=== PATIENT | male | born 2000 | race Caucasian/White ===

== ENCOUNTER 2022-12-09 11:01 | Emergency (ER) | payer OTHER, SELFPAY ==
[2022-12-09] VITALS (11 sets, daily range): BP systolic 122–134; BP diastolic 68–76; PULSE 53–75; RESP 14–25; TEMP 37.3; O2SAT 97–100; BMI 22.0
--- NOTE | 2022-12-09 11:32 | ECG_ITS ---
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
--- NOTE | 2022-12-09 11:32 | XR_ITS ---
The [address] [address] Patient Name: SUJATHA RODAS MRN: [id number] date: 2000 Sex: M Assigned Patient Location: ER Current Patient Location: ED.MAIN Accession/Order Number: [id number] Exam Date: 12/09/2022 11:57 Report Date: 12/09/2022 12:49 At the request of: KRISTIAN VAZQUEZ Procedure: XR chest 1V EXAMINATION: XR chest 1V HISTORY: shortness of breath COMPARISON: No relevant comparison available. FINDINGS: LUNGS: No significant pulmonary parenchymal abnormalities. VASCULATURE: No increased pulmonary vasculature. PLEURA: No pneumothorax, effusion, or pleural thickening. CARDIAC: No cardiomegaly or cardiac silhouette abnormality. MEDIASTINUM: No visible mass or adenopathy. BONES: No fracture or visible bone lesion. OTHER: Negative. XR/XR chest 1V IMPRESSION: 1. No acute cardiopulmonary process. Electronically authenticated by: RADHA HILL Date: 12/09/2022 12:49
--- NOTE | 2022-12-09 11:33 | ED.GENADUL1 ---
HPI - General Adult General Chief complaint: Chest Pain Stated complaint: SHORTNESS OF BREATH/CHEST PAIN Time Seen by Provider: 12/09/22 11:11 History of Present Illness HPI narrative: 2 days ago the patient developed sensation of shortness of breath that caught me as I was trying to go to sleep and lasted about 5 seconds . he described it as difficulty catching his breath. He had a couple more episodes the next day and then the symptoms became persistent. He now describes a sensation of tightness in the upper airway but denies any difficulty talking or swallowing. No sore throat, ear pain, nasal symptoms, chest pain or cough. No recent injury or illness. He denied any chemical or environmental exposures at work. PMHx notable only for taking ADHD for the last 2.5 months, since his mother passed, and he only takes that sporadically. No recent travel or immobility. He had left femur repair of fracture as a child and has rods in the leg. He denied any new leg pain or swelling. No history of lung disease/asthma/recurrent croup but he vapes daily over the last 3 years Related Data Home Medications Medication Instructions Recorded Confirmed No Known Home Medications 12/09/22 12/09/22 Previous Rx's Medication Instructions Recorded albuterol 90 mcg-budesonide 80 2 inh inhalation TID PRN shortness 12/09/22 mcg/actuation HFA aerosol inhaler of breath #10.7 grams prednisone 20 mg tablet 40 mg PO DAILY 5 days #10 tabs 12/09/22 Allergies Allergy/AdvReac Type Severity Reaction Status Date / Time Penicillins Allergy Severe Hives Verified 12/09/22 11:09 [facility] Social History Smoking status: Light tobacco smoker Exam Narrative Exam Narrative: Nurses notes and vital signs reviewed and patient is not hypoxic. afebrile General: Well-appearing and in no apparent distress. Skin: Warm, dry, no pallor noted. No rash. Head: Normocephalic, atraumatic. Neck: Supple, non-tender. no crepitus or subcutaneous emphysema. No mass or swelling. No cervical lymphadenopathy. Eye: Pupils are equal, round and EOMI. No scleral icterus. Ears, Nose, Mouth, and Throat: TM are clear, no nasal mucosal hypertrophy. Oral mucosa is moist, no posterior oropharynx erythema, uvula is mid-line Cardiovascular: Regular Rate and Rhythm without murmur, gallop or rub. Respiratory: No accessory muscle use or respiratory distress. Lungs are clear to auscultation, no wheezing, rales or rhonchi Chest Wall: no tenderness, crepitus or subcutaneous emphysema Musculoskeletal: normal ROM, no calf or popliteal tenderness, no lower extremity edema/swelling Neurological: A&O x4. No cranial nerve dysfunction observed. No truncal ataxia. Moves all extremities. Sensation intact. Psychiatric: Cooperative and interactive. Normal mood and affect. Constitutional Vital Signs, click to edit/add: Last Vital Signs Temp 99.1 F 12/09/22 11:05 Pulse 55 L 12/09/22 11:42 Resp 20 12/09/22 11:05 BP 134/76 12/09/22 11:05 Pulse Ox 97 12/09/22 11:42 O2 Del Method Room Air 12/09/22 11:05 Course Vital Signs Vital signs: Vital Signs Temperature 99.1 F 12/09/22 11:05 Pulse Rate 62 12/09/22 11:05 Respiratory Rate 20 12/09/22 11:05 Blood Pressure 134/76 12/09/22 11:05 Pulse Oximetry 100 12/09/22 11:05 Oxygen Delivery Method Room Air 12/09/22 11:05 Temperature 99.1 F 12/09/22 11:05 Pulse Rate 55 L 12/09/22 11:42 Respiratory Rate 20 12/09/22 11:05 Blood Pressure 134/76 12/09/22 11:05 Pulse Oximetry 97 12/09/22 11:42 Oxygen Delivery Method Room Air 12/09/22 11:05 Medical Decision Making [facility] Narrative Medical decision making narrative: Patient was placed on playground monitor and EKG obtained. Blood drawn and sent for evaluation. chest x-ray obtained. Blood tests were unremarkable including screening d-dimer. EKG was normal. Chest x-ray unremarkable. The patient received oral steroids and nebulized albuterol treatment while in the emergency department. Patient and family informed of results and he was discharged home with prescriptions for short course of prednisone and an albuterol MDI. The patient was instructed to stop vaping. He can see his PCP for follow up. Lab Data Labs: Lab Results 12/09/22 Range/Units 11:40 WBC 8.3 (4.0-11.0) 10^3/uL RBC 4.52 L (4.70-6.10) 10^6/uL Hgb 13.8 L (14.0-18.0) g/dL Hct 39.6 L (42.0-54.0) % MCV 87.6 (80.0-94.0) fL MCH 30.5 (25.9-34.0) pg MCHC 34.8 (29.9-35.2) g/dL RDW 12.9 (11.0-15.0) % Plt Count 209 (150-450) 10^3/uL MPV 10.2 (9.5-13.5) fL Neut % (Auto) 67.0 (43.0-75.0) % Lymph % (Auto) 23.0 (20.5-60.0) % [place] % (Auto) 8.3 (1.7-12.0) % Eos % (Auto) 1.1 (0.9-7.0) % Baso % (Auto) 0.5 (0.2-2.0) % Neut # (Auto) 5.6 (1.4-6.5) 10^3/uL Lymph # (Auto) 1.9 (1.2-3.8) 10^3/uL [place] # (Auto) 0.7 (0.3-0.8) 10^3/uL Eos # (Auto) 0.1 (0.0-0.7) 10^3/uL Baso # (Auto) 0.0 (0.0-0.1) 10^3/uL Abs Immat Gran (auto) 0.01 (0.00-0.03) 10^3/uL Imm/Tot Granulo (auto) 0.1 (0.0-0.5) % D-Dimer <0.19 (<=0.59) mg/L FEU Sodium 139 (136-145) mmol/L Potassium 3.7 (3.5-5.1) mmol/L Chloride 104 (98-107) mmol/L Carbon Dioxide 27.5 (21.0-32.0) mmol/L Anion Gap 11.2 BUN 10.0 (7.0-18.0) mg/dL Creatinine 0.78 (0.70-1.30) mg/dL Est GFR ( Amer) >60 (>=60) Est GFR (Non-Af Amer) >60 (>=60) BUN/Creatinine Ratio 12.8 Glucose 97 (74-106) mg/dL Calcium 9.0 (8.5-10.1) mg/dL ECG Data Attestation: ?I have reviewed the pertinent ECG results. Interpretation: EKG interpretation: Emergency Department physician interpretation. Normal sinus rhythm at 59bpm. Normal axis, normal intervals and no ST segment elevation or depression. Discharge Plan Discharge Chief Complaint: Chest Pain Clinical Impression: Acute dyspnea Patient Disposition: Home, Self-Care Time of Disposition Decision: 12:25 Prescriptions / Home Meds: New prednisone 20 mg tablet 40 mg PO DAILY 5 Days Qty: 10 0RF albuterol-budesonide 90-80 mcg/actuation HFA aerosol inhaler 2 inh inhalation TID PRN (Reason: shortness of breath) Qty: 10.7 0RF No Action No Known Home Medications Instructions: Dyspnea (ED) Stand Alone Forms: Portal Instructions Referrals: Physician,Non-Staff, MD [Primary Care Provider] - 1 week
[2022-12-09] MEDS: PREDNISONE 20 MG TABLET 40 MG PO (11:38)
[2022-12-09] MEDS: ALBUTEROL SULFATE 2.5 MG/3 ML VIAL NEB IH (11:41)
[2022-12-09 11:48] LABS: Basophils Percent Auto 0.5 % (0.2-2.0); Eosinophils Absolute Auto 0.1 10^3/uL (0.0-0.7); Eosinophils Percent Auto 1.1 % (0.9-7.0); Hematocrit 39.6 % (42.0-54.0); Hemoglobin 13.8 g/dL (14.0-18.0); Immature Granulocytes Abs Auto 0.01 10^3/uL (0.00-0.03); Immature Granulocytes Pct Auto 0.1 % (0.0-0.5); Lymphocytes Absolute Auto 1.9 10^3/uL (1.2-3.8); Mean Corpuscular HGB Conc 34.8 g/dL (29.9-35.2); Mean Corpuscular Hemoglobin 30.5 pg (25.9-34.0); Mean Corpuscular Volume 87.6 fL (80.0-94.0); Mean Platelet Volume 10.2 fL (9.5-13.5); Monocytes Absolute Auto 0.7 10^3/uL (0.3-0.8); Monocytes Percent Auto 8.3 % (1.7-12.0); Neutrophils Absolute Auto 5.6 10^3/uL (1.4-6.5); Platelet Count 209 10^3/uL (150-450); Red Blood Count 4.52 10^6/uL (4.70-6.10); Red Cell Distribution Width 12.9 % (11.0-15.0); White Blood Count 8.3 10^3/uL (4.0-11.0)
[2022-12-09 12:00] LABS: Anion Gap 11.2; BUN Creatinine Ratio 12.8; Carbon Dioxide 27.5 mmol/L (21.0-32.0); Chloride 104 mmol/L (98-107); Estimated GFR (African America >60 (>=60); Estimated GFR (Non-African Ame >60 (>=60); Glucose 97 mg/dL (74-106); Potassium 3.7 mmol/L (3.5-5.1); Sodium 139 mmol/L (136-145)
[2022-12-09 12:08] LABS: D Dimer <0.19 mg/L FEU (<=0.59)
== END 2022-12-09 12:32 | disposition home or self-care (01) ==
PROVIDERS: Emergency Provider Emergency Medicine
DX: R06.00 Dyspnea, unspecified (principal); F17.210 Nicotine dependence, cigarettes, uncomplicated
CPT/HCPCS: 36415; 71045; 80048; 85025; 85378; 93005; 94640; 99285

== ENCOUNTER 2024-03-31 16:50 | Emergency (ER) | payer OTHER, SELFPAY ==
[2024-03-31 16:54] VITALS: BP 134/81; PULSE 74; TEMP 36.6; O2SAT 98; BMI 25.1
--- NOTE | 2024-03-31 16:56 | XR_ITS ---
The [address] [address] Patient Name: SUJATHA RODAS MRN: [id number] date: 2000 Sex: M Assigned Patient Location: ER Current Patient Location: Accession/Order Number: [id number] Exam Date: 03/31/2024 17:26 Report Date: 03/31/2024 18:44 At the request of: GRANT TRAVIS Procedure: XR hand RT min 3V EXAM: XR hand RT min 3V HISTORY: injury COMPARISON: None. TECHNIQUE: 3 views of right hand FINDINGS: There is no acute fracture or dislocation. The soft tissue is unremarkable. XR/XR hand RT min 3V IMPRESSION: No acute process. Electronically authenticated by: COLE VAZQUEZ Date: 03/31/2024 18:44
--- OUTSIDE RECORDS SUMMARY | 2024-03-31 17:04 | XMS_ITS | CCD ---
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 information for diagnosis. XR CHEST (2 VW)on 11-07-2019 EXAMINATION: TWO XRA Y VIEWS OF THE CHEST 11/07/2019 5:53 pm COMPARISON: 10/30/2018 HISTORY: ORDERING SYSTEM PROVIDED HISTORY: chest pain TECHNOLOGIST PROVIDED HISTORY: chest pain Reason for Exam: chest pain mid, pounding upon waking. Acuity: Chronic Type of Exam: Subsequent/Follow-up FINDINGS: Frontal and lateral views of the chest are submitted for review. The cardiac silhouette is normal in size. Lung parenchyma is clear without focal airspace consolidation, sizeable pleural effusion, or pneumothorax. Trachea is midline. Osseous structures and soft tissues are grossly intact. [place] No acute cardiopulmonary pathology. [place] Gianni, Mhpn Incoming Radiant Results From [employer] - 11/07/2019 6:06 PM EDT EXAMINATION: TWO XRAY VIEWS OF THE CHEST 11/07/2019 5:53 pm COMPARISON: 10/30/2018 HISTORY: ORDERING SYSTEM PROVIDED HISTORY: chest pain TECHNOLOGIST PROVIDED HISTORY: chest pain Reason for Exam: chest pain mid, pounding upon waking. Acuity: Chronic Type of Exam: Subsequent/Follow-up FINDINGS: Frontal and lateral views of the chest are submitted for review. The cardiac silhouette is normal in size. Lung parenchyma is clear without focal airspace consolidation, sizeable pleural effusion, or pneumothorax. Trachea is midline. Osseous structures and soft tissues are grossly intact. IMPRESSION: No acute cardiopulmonary pathology. [facility]-2019 Right wrist: No acut e fracture or dislocation. Right hand: No acute fracture or dislocation. [facility] EXAMINATION: 4 XRAY VIEWS OF THE RIGHT WRIST; THREE XRAY VIEWS OF THE RIGHT HAND 05/26/2019 5:07 pm COMPARISON: None. HISTORY: ORDERING SYSTEM PROVIDED HISTORY: pain TECHNOLOGIST PROVIDED HISTORY: pain Reason for Exam: Right wrist pain, pinned bwetween wall and gun cabinet this am at 9 Acuity: Acute Type of Exam: Initial Relevant Medical/Surgical History: pain radial side and thumb 18-year-old male who complains of right wrist and right hand pain; right wrist pain; pain between wall and gun cabinet this morning at 9 a.m. FINDINGS: Right wrist: Joint spaces are well maintained. Osseous alignment is normal. No marginal erosions are identified. No acute fracture or gross dislocation is seen. Scaphoid appears grossly intact. No significant soft tissue swelling is identified. Right hand: Osseous alignment is normal. Joint spaces are well maintained. No marginal erosions are identified. No acute fracture or gross dislocation is seen. No focal soft tissue swelling is evident. [facility] Gianni, Mhpn Incoming Radiant Results From [employer] - 05/26/2019 5:22 PM EDT EXAMINATION: 4 XRAY VIEWS OF THE RIGHT WRIST; THREE XRAY VIEWS OF THE RIGHT HAND 05/26/2019 5:07 pm COMPARISON: None. HISTORY: ORDERING SYSTEM PROVIDED HISTORY: pain TECHNOLOGIST PROVIDED HISTORY: pain Reason for Exam: Right wrist pain, pinned bwetween wall and gun cabinet this am at 9 Acuity: Acute Type of Exam: Initial Relevant Medical/Surgical History: pain radial side and thumb 18-year-old male who complains of right wrist and right hand pain; right wrist pain; pain between wall and gun cabinet this morning at 9 a.m. FINDINGS: Right wrist: Joint spaces are well maintained. Osseous alignment is normal. No marginal erosions are identified. No acute fracture or gross dislocation is seen. Scaphoid appears grossly intact. No significant soft tissue swelling is identified. Right hand: Osseous alignment is normal. Joint spaces are well maintained. No marginal erosions are identified. No acute fracture or gross dislocation is seen. No focal soft tissue swelling is evident. IMPRESSION: Right wrist: No acute fracture or dislocation. Right hand: No acute fracture or dislocation. [place] Basic Metabolic Panelon 10-16 Anion gap [Moles/Vol] 14 mmol/L 9 - 17 mmol/L [place] Bun/Cre Ratio NOT REPORTED [place], [place] Calcium [Mass/Vol] 9.1 mg/dL 8.6 - 10. 4 mg/dL [place] Chloride [Moles/Vol] 101 mmol/L 98 - 107 mmol/L [place] CO2 [Moles/Vol] 25 mmol/L 20 - 31 mmol/L [place] Creatinine [Mass/Vol] 0.8 mg/dL 0.7 - 1.2 mg/dL [place] GFR NOT REPORTED >60 mL/min [place] GFR Non- Pediatric GFR requires additional information. Refer to NKDEP website for calculator. >60 mL/min [place] GFR/1.73 sq M predicted among non-blacks MDRD (S/P/Bld) [Vol rate/Area] [place] Comment on above: Average GFR for <20 years old not available. Chronic Kidney Disease: <60 mL/min/1.73sq m Kidney failure: <15 mL/min/1.73sq m eGFR calculated using average adult body mass. Additional eGFR calculator available at: http://www.[facility].eCozy/multiple_crcl_2012.htm GFR/1.73 sq M predicted among non-blacks MDRD (S/P/Bld) [Vol rate/Area] NOT REPORTED [place] Glucose [Mass/Vol] 93 mg/dL 70 - 99 mg/dL [place] Potassium [Moles/Vol] 3.8 mmol/L 3.7 - 5.3 mmol/L [place] Sodium [Moles/Vol] 140 mmol/L 135 - 144 mmol/L [place] Urea nitrogen [Mass/Vol] 9 mg/dL 6 - 20 mg/dL [place] CBC Auto Differentialon 10-16 Basophils (Bld) [#/Vol] 0.00 10*3/uL [place] Basophils/100 WBC (Bld) 0 % 0 - 2 % [place] Differential Type NOT REPORTED [place] Eosinophils (Bld) [#/Vol] 0.00 10*3/uL [place] Eosinophils/100 WBC (Bld) 0 % Low 1 - 4 % [place] Erythrocyte distribution width (RBC) [Ratio] 13.7 % 12.5 - 15.4 % [place] Hematocrit (Bld) [Volume fraction] 41.3 % 41 - 53 % [place] Hemoglobin (Bld) [Mass/Vol] 14.3 g/dL 13.5 - 17.5 g/dL [place] Interpretation and review of laboratory results Abnormal [place] Lymphocytes (Bld) [#/Vol] 0.36 10*3/uL [place] Lymphocytes/100 WBC (Bld) 4 % Low 25 - 45 % [place] MCH (RBC) [Entitic mass] 29.7 pg 25 - 35 pg [place] MCHC (RBC) [Mass/Vol] 34.7 g/dL 31 - 37 g/dL [place] MCV (RBC) [Entitic vol] 85.5 fL 78 - 102 fL [place] Monocytes (Bld) [#/Vol] 1.27 10*3/uL [place] Monocytes/100 WBC (Bld) 14 % High 2 - 8 % [place] Morphology Rio (Bld) [Interp] Normal [place] Platelet mean volume (Bld) [Entitic vol] 8.3 fL 6 - 12 fL [place] Platelets (Bld) [#/Vol] 161 10*3/uL [place] Platelets (Bld) [#/Vol] NOT REPORTED [place] RBC (Bld) [#/Vol] 4.83 10*6/uL 4.5 - 5.9 m/uL [place] RBC morphology finding Nom (Bld) NOT REPORTED [place] Segmented neutrophils/100 WBC (Bld) 82 % High 34 - 64 % [place] Segs Absolute 7.47 [place] WBC (Bld) [#/Vol] NOT REPORTED per 100 WBC [place] WBC (Bld) [#/Vol] 9.1 10*3/uL [place] WBC Morphology NOT REPORTED [place] Microscopic Urinalysison Amorphous, UA NOT REPORTED None [place], [place] Bacteria, UA FEW Abnormal None [place] Casts UA NOT REPORTED /LPF [place] Crystals UA NOT REPORTED None /HPF [place] Epithelial Cells UA 0 TO 2 /HPF [place] Interpretation and review of laboratory results Abnormal [place] Mucus, UA 2+ Abnormal None [place] Other Observations UA Utilizing a urinalysis as the only screening method to exclude a potential uropathogen can be unreliable in many patient populations. Rapid screening tests are less sensitive than culture and if UTI is a clinical possibility, culture should be considered despite a negative urinalysis. Abnormal NOT REQ. [place] RBC (U) [#/Vol] 0 TO 2 /HPF [place] Renal Epithelial, Urine NOT REPORTED 0 /HPF [place] Trichomonas, UA NOT REPORTED None [place] WBC, UA 2 TO 5 /HPF [place] Yeast, UA NOT REPORTED None [place], [place] - [place] Otheron 10-30-2018 Immature granulocytes (Bld) [#/Vol] NOT REPORTED [place] Urinalysis Reflex to Culture on 10-30-2018 Bilirubin Urine Negative NEGATIVE [facility] [place] Color, UA YELLOW YELLOW [place] Glucose, Ur Negative NEGATIVE [place] Interpretation and review of laboratory results Abnormal [place] Ketones Ql (U) Negative NEGATIVE [place] Leukocyte esterase Test strip Ql (U) Negative NEGATIVE [place] Nitrite, Urine Negative NEGATIVE [place] pH, UA 6.5 [place] Protein (U) [Mass/Vol] TRACE Abnormal NEGATIVE [place] Specific [place], UA 1.020 [place] Turbidity UA CLEAR CLEAR [place] Urinalysis Comments NOT REPORTED [place] Urine Hgb Negative NEGATIVE [place] Urobilinogen, Urine Normal Normal [place] XR CHEST STANDARD (2 VW)on 0 10-30-2018 EXAMINATION: TWO XRA Y VIEWS OF THE CHEST 10/30/2018 2:19 pm COMPARISON: Chest February 02, 2017. HISTORY: ORDERING SYSTEM PROVIDED HISTORY: fever TECHNOLOGIST PROVIDED HISTORY: fever Reason for Exam: cough Acuity: Acute Type of Exam: Initial Additional signs and symptoms: fever Relevant Medical/Surgical History: pt denies FINDINGS: The lungs are without acute focal process. There is no effusion or pneumothorax. The cardiomediastinal silhouette is without acute process. The osseous structures are without acute process. [place] No acute process. [facility] [place] Gianni, Mhpn Incoming Radiant Results From [employer] - 10/30/2018 2:43 PM EDT EXAMINATION: TWO XRAY VIEWS OF THE CHEST 10/30/2018 2:19 pm COMPARISON: Chest February 02, 2017. HISTORY: ORDERING SYSTEM PROVIDED HISTORY: fever TECHNOLOGIST PROVIDED HISTORY: fever Reason for Exam: cough Acuity: Acute Type of Exam: Initial Additional signs and symptoms: fever Relevant Medical/Surgical History: pt denies FINDINGS: The lungs are without acute focal process. There is no effusion or pneumothorax. The cardiomediastinal silhouette is without acute process. The osseous structures are without acute process. IMPRESSION: No acute process. [place] Vital Signs Date Time Vital Sign Value Performing Clinician Rigoberto harman 03-07-2023 12:30-0500 Body height 172.72 cm Kelly Lazaromond Other [facility] Other 03-07-2023 12:30-0500 Body mass index (BMI) [Ratio] 25.09 kg/m2 Kelly Lazaromond Other [facility] Other 03-07-2023 12:30-0500 Body temperature 97.6 [degF] Kelly Duval Other [facility] Other 03-07-2023 12:30-0500 Body weight 74.84 kg Kelly Lazaromond Other [facility] Other 03-07-2023 12:30-0500 Diastolic blood pressure 72 mm[Hg] Kelly Lazaromond Other [facility] Other 03-07-2023 12:30-0500 Respiratory rate 18 /min Kelly Lazaromond Other [facility] Other 03-07-2023 12:30-0500 SaO2% (BldA) [Mass fraction] 99 % Kelly Lazaromond Other [facility] Other 03-07-2023 12:30-0500 Systolic blood pressure 124 mm[Hg] Kelly Lazaromond Other [facility] Other 04-25-2022 17:21-0500 Body height 172.7 cm Harvey Hinojosa MD Work Phone: [employer] 04-25-2022 17:21-0500 Body mass index (BMI) [Ratio] 21.29 kg/m2 Harvey Hinojosa MD Work Phone: [employer] 04-25-2022 17:21-0500 Body temperature 98.1 [degF] Harvey Hinojosa MD Work Phone: [employer] 04-25-2022 17:21-0500 Body weight 63.5 kg Harvey Hinojosa MD Work Phone: [employer] 04-25-2022 17:21-0500 Diastolic blood pressure 72 mm[Hg] Harvey Hinojosa MD Work Phone: [employer] 04-25-2022 17:21-0500 Heart rate 78 /min Harvey Hinojosa MD Work Phone: [employer] 04-25-2022 17:21-0500 Respiratory rate 16 /min Harvey Hinojosa MD Work Phone: [employer] 04-25-2022 17:21-0500 SaO2% (BldA) [Mass fraction] 98 % Harvey Hinojosa MD Work Phone: [employer] 04-25-2022 17:21-0500 Systolic blood pressure 114 mm[Hg] Harvey Hinojosa MD Work Phone: [employer] 02-28-2021 11:57-0500 Body height 172.7 cm Jolene Rivera DO Work Phone: [employer] 02-28-2021 11:57-0500 Body mass index (BMI) [Ratio] 21.12 kg/m2 Jolene Rivera DO Work Phone: [employer] 02-28-2021 11:57-0500 Body temperature 97.7 [degF] Jolene Rivera DO Work Phone: [employer] 02-28-2021 11:57-0500 Body weight 63 kg Jolene Rivera DO Work Phone: [employer] 02-28-2021 11:57-0500 Diastolic blood pressure 82 mm[Hg] Jolene Rivera DO Work Phone: [employer] 02-28-2021 11:57-0500 Heart rate 84 /min Jolene Rivera DO Work Phone: [facility] 02-28-2021 11:57-0500 Respiratory rate 16 /min Jolene Rivera DO Work Phone: [facility] 02-28-2021 11:57-0500 SaO2% (BldA) [Mass fraction] 97 % Jolene Rivera DO Work Phone: [facility] 02-28-2021 11:57-0500 Systolic blood pressure 123 mm[Hg] Jolene Rivera DO Work Phone: [facility] 11-07-2019 19:00-0400 BP Diastolic 61 mm[Hg] [facility] [employer] [facility] [place] 11-07-2019 19:00-0400 BP Systolic 106 mm[Hg] [facility] [employer] [facility] [place] 11-07-2019 19:00-0400 Pulse (Heart Rate) 50 /min [facility] [employer] [facility] 11-07-2019 19:00-0400 Pulse Oximetry 94 % [facility] [employer] [facility] [place] 11-07-2019 19:00-0400 Respiratory Rate 18 /min [facility] [place] 11-07-2019 17:03-0400 BMI (Body Mass Index) 20.07 kg/m2 [facility] [employer] [facility] 11-07-2019 17:03-0400 Body Temperature 99 [degF] [facility] 11-07-2019 17:03-0400 Body weight 59.88 kg [facility] [employer] [facility] [place] 11-07-2019 17:03-0400 Height 172.7 cm [facility] [employer] [facility] [place] 10-08-2019 17:55-0400 Pulse Oximetry 99 % [facility], [place] 10-08-2019 17:55-0400 Respiratory Rate 11 /min [facility] 10-08-2019 17:54-0400 BMI (Body Mass Index) 19.2 kg/m2 [facility], [place] 10-08-2019 17:54-0400 Body Temperature 98.1 [degF] [facility] 10-08-2019 17:54-0400 Body weight 58.97 kg [facility] 10-08-2019 17:54-0400 BP Diastolic 75 mm[Hg] [facility] 10-08-2019 17:54-0400 BP Systolic 137 mm[Hg] [facility] 10-08-2019 17:54-0400 Height 175.3 cm [facility] 10-08-2019 17:54-0400 Pulse (Heart Rate) 70 /min [facility], [place] 05-26-2019 16:32-0400 BMI (Body Mass Index) 20.53 kg/m2 [facility] 05-26-2019 16:32-0400 Body Temperature 98.2 [degF] [facility] 05-26-2019 16:32-0400 Body weight 61.24 kg [facility] , [place] 05-26-2019 16:32-0400 BP Diastolic 70 mm[Hg] [facility] , [place] 05-26-2019 16:32-0400 BP Systolic 124 mm[Hg] [facility] , [place] 05-26-2019 16:32-0400 Height 172.7 cm [facility] , [place] 05-26-2019 16:32-0400 Pulse (Heart Rate) 62 /min [facility] 05-26-2019 16:32-0400 Pulse Oximetry 98 % [facility] , [place] 05-26-2019 16:32-0400 Respiratory Rate 12 /min [facility] 10-30-2018 13:31-0400 BMI (Body Mass Index) 19.77 kg/m2 [facility] 10-30-2018 13:31-0400 Body Temperature 99.5 [degF] Abeba Maciel [place] 10-30-2018 13:31-0400 Body weight 58.97 kg Abeba [place] 10-30-2018 13:31-0400 BP Diastolic 67 mm[Hg] [place] 10-30-2018 13:31-0400 BP Systolic 112 mm[Hg] [place] 10-30-2018 13:31-0400 Height 172.7 cm [place] 10-30-2018 13:31-0400 Pulse (Heart Rate) 76 /min [place] 10-30-2018 13:31-0400 Pulse Oximetry 95 % [place] 10-30-2018 13:31-0400 Respiratory Rate 14 /min [place] Encounters Encounter Date Encounter Type Care Provider Facility Start: 03-07-2023 End: 03-07-2023 ambulatory Kelly Duval Other [facility] Other Start: 03-07-2023 Office outpatient ne w 20 minutes Kelly Duval [facility] [place] Start: 04-25-2022 End: 04-25-2022 Emergency department patient visit ROSANGELA Luis Carlos [facility] Start: 04-25-2022 End: 04-25-2022 Emergency department patient visit Harvey Hinojosa MD Work Phone: [facility] Comment on above: Sprain of right wris t, initial encounter (Primary Dx) Start: 02-28-2021 End: 02-28-2021 Emergency department patient visit Jolene Rivera DO Work Phone: [facility] Comment on above: Gastroenteritis (Regla catracho Dx) Start: 11-07-2019 End: 11-07-2019 Emergency department patient visit Abeba Maciel Work Phone: [facility] Comment on above: Chest pain, unspecif ied type (Primary Dx); Streptococcal sore throat Start: 10-08-2019 End: 10-08-2019 Emergency department patient visit Fuentes Gilmore [facility] Comment on above: Foot laceration, lef t, initial encounter (Primary Dx) Start: 05-26-2019 End: 05-26-2019 Emergency department patient visit Abeba Maciel Work Phone: [facility] Comment on above: Contusion of right w rist, initial encounter (Primary Dx) Start: 10-30-2018 End: 10-30-2018 Emergency department patient visit Abeba Maciel Work Phone: [facility] Comment on above: Viral syndrome (Prim ivet Dx) Start: 02-18-2018 End: 02-18-2018 Patient encounter procedure WISAM WATERS Facility: Procedures Date Procedure Procedure Detail Performing Clinician Start: 04-25-2022 Radex wrist complete minimum 3 views Frank Alejandre [employer] Work Phone: Start: 02-28-2021 Urnls dip stick/tabl et rgnt auto w/o microscopy Jolene Rivera Work Phone: Start: 02-28-2021 Ct abdomen & pelvis w/contrast material Jolene Rivera Work Phone: Start: 02-28-2021 Assay of lipase Jolene Rivera Work Phone: Start: 11-07-2019 Radiologic exam ches t 2 views Abeba Maciel Work Phone: Start: 11-07-2019 Assay of troponin quantitative Abeba Maciel Work Phone: Start: 11-07-2019 Blood count complete auto&auto difrntl wbc Abeba Maciel Work Phone: Start: 11-07-2019 Comprehensive metabo lic panel Abeba Maciel Work Phone: Start: 11-07-2019 Fibrin dgradj produc ts d-dimer quantitative Abeba Maciel Work Phone: Start: 05-26-2019 Radex hand minimum 3 views Linda Espinoza Work Phone: Start: 05-26-2019 Radex wrist complete minimum 3 views Linda Espinoza Work Phone: Start: 10-30-2018 Radiologic exam ches t 2 views Abeba Maciel Work Phone: Start: 10-30-2018 Basic metabolic pane l calcium total Abeba Maciel Work Phone: Start: 10-30-2018 Blood count complete auto&auto difrntl wbc Abeba Maciel Work Phone: Start: 10-30-2018 Urinalysis microscopic only Abeba Maciel Work Phone: Start: 10-30-2018 Urnls dip stick/tabl et rgnt auto w/o microscopy Abeba Maciel Work Phone: Plan of Treatment Date Care Activity Detail Author Start: 09-10-2025 DTaP/Tdap/Td vaccine (7 - Td or Tdap) DTaP/Tdap/Td vaccine (7 - Td or Tdap) [facility] Start: 09-10-2025 DTaP/Tdap/Td vaccine (7 - Td) DTaP/Tdap/Td vaccine (7 - Td) [place] Start: 09-22-2022 Depression Screen Depression Screen [facility] Start: 01-07-2022 Depression Screen Depression Screen [facility] Start: 09-15-2021 Influenza vaccination Flu vaccine (# 1) [facility] Start: 08-14-2021 Influenza vaccination Flu vaccine (# 1) [facility] Comment on above: Postponed from 10/16 (Patient Refused) Start: 10-17-2019 Influenza vaccination [place] Start: 10-16-2018 Influenza vaccination Flu vaccine (# 1) [place] Start: 2016 Meningococcal (ACWY) Vaccine (1 - 2-dose series) Meningococcal (ACWY) Vaccine (1 - 2-dose series) [place] Start: 03-13-2016 Hepatitis A vaccine (2 of 2 - 2-dose series) Hepatitis A vaccine (2 of 2 - 2-dose series) [place] Start: 03-13-2016 HPV vaccine (2 - Mal e 2-dose series) HPV vaccine (2 - Male 2-dose series) [place] Start: 10-14-2015 HIV screen HIV screen [place] Start: 10-14-2015 HIV screening [facility] Start: 10-14-2015 HPV vaccine (1 - Mal e 3-dose series) HPV vaccine (1 - Male 3-dose series) [place] Start: 2013 Varicella Vaccine (1 of 2 - 13+ 2-dose series) Varicella Vaccine (1 of 2 - 13+ 2-dose series) [place] Start: 10-14-2011 DTaP/Tdap/Td vaccine (6 - Tdap) DTaP/Tdap/Td vaccine (6 - Tdap) [place] Start: 2005 COVID-19 Vaccine (1) COVID-19 Vaccin e (1) [facility] Start: 04-14-2001 COVID-19 Vaccine (#1) COVID-19 Vacci ne (#1) [facility] Start: 2000 Hepatitis B Vaccine (1 of 3 - 3-dose primary series) Hepatitis B Vaccine (1 of 3 - 3-dose primary series) [place] End: 10-30-2018 Culture Blood #1 Culture Blood #1 Microbiology STAT One Time for 1 Occurrences starting 10/30/2018 until 10/30/2018 [place] Comment on above: One Time for 1 Occur rences starting 10/30/2018 until 10/30/2018 Culture Blood #1 [place] Immunizations Immunization Date Immunization Notes Care Provider Marie to 03-03-2017 hepatitis A vaccine, pediatric/adolescent dosage, 2 dose schedule Jolene Rivera DO Work Phone: [facility] Work Phone: 03-03-2017 Human Papillomavirus 9-valent vaccine Jolene Rivera DO Work Phone: [facility] Work Phone: 03-03-2017 meningococcal oligosaccharide (groups A, C, Y and W-135) diphtheria toxoid conjugate vaccine (MCV4O) Jolene Rivera DO Work Phone: [employer] Work Phone: 09-11-2015 hepatitis A vaccine, pediatric/adolescent dosage, 2 dose schedule Jolene Rivera DO Work Phone: [employer] Work Phone: 09-11-2015 Human Papillomavirus 9-valent vaccine Jolene Rivera DO Work Phone: [facility] Phone: 09-11-2015 meningococcal oligosaccharide (groups A, C, Y and W-135) diphtheria toxoid conjugate vaccine (MCV4O) Jolene Rivera DO Work Phone: [facility] Phone: 09-11-2015 Td, unspecified formulation Jolene Rivera DO Work Phone: [employer] 09-11-2015 tetanus toxoid, redu ortiz diphtheria toxoid, and acellular pertussis vaccine, adsorbed Jolene Rivera DO Work Phone: [facility] Phone: 09-11-2015 varicella virus vaccine Cedric Rivera DO Work Phone: [facility] Phone: 10-09-2005 diphtheria, tetanus toxoids and acellular pertussis vaccine, unspecified formulation Jolene Rivera DO Work Phone: [facility] Phone: 10-09-2005 measles, mumps and rubella virus vaccine Jolene Rivera DO Work Phone: [facility] Phone: 10-09-2005 poliovirus vaccine, inactivated Jolene Rivera DO Work Phone: [facility] Phone: 02-23-2002 diphtheria, tetanus toxoids and acellular pertussis vaccine, 5 pertussis antigens Jolene Rivera DO Work Phone: [employer] Work Phone: 02-23-2002 haemophilus influenz ae type b vaccine, PRP-T conjugate Jolene Rivera DO Work Phone: [employer] Work Phone: 02-23-2002 measles, mumps and rubella virus vaccine Jolene Rivera DO Work Phone: [employer] Work Phone: 10-18-2001 pneumococcal conjuga te vaccine, 7 valent Jolene Rivera DO Work Phone: [employer] Work Phone: 10-18-2001 poliovirus vaccine, unspecified formulation Jolene Rivera DO Work Phone: [facility] Phone: 10-18-2001 varicella virus vaccine Cedric Rivera DO Work Phone: [employer] Work Phone: 04-14-2001 diphtheria, tetanus toxoids and acellular pertussis vaccine, unspecified formulation Jolene Rivera DO Work Phone: [facility] Phone: 04-14-2001 haemophilus influenz ae type b vaccine, conjugate unspecified formulation Jolene Rivera DO Work Phone: [employer] Work Phone: 04-14-2001 hepatitis B vaccine, pediatric or pediatric/adolescent dosage Jolene Rivera DO Work Phone: [facility] Phone: 04-14-2001 pneumococcal conjuga te vaccine, 7 valent Jolene Rivera DO Work Phone: [employer] Work Phone: 02-18-2001 diphtheria, tetanus toxoids and acellular pertussis vaccine, unspecified formulation Jolene Rivera DO Work Phone: [employer] Work Phone: 02-18-2001 haemophilus influenz ae type b vaccine, conjugate unspecified formulation Jolene Rivera DO Work Phone: [employer] Work Phone: 02-18-2001 pneumococcal conjuga te vaccine, 7 valent Jolene Rivera DO Work Phone: [employer] Work Phone: 02-18-2001 poliovirus vaccine, unspecified formulation Jolene Rivera DO Work Phone: [employer] Work Phone: 2000 diphtheria, tetanus toxoids and acellular pertussis vaccine, unspecified formulation Jolene Rivera DO Work Phone: [employer] Work Phone: 2000 haemophilus influenz ae type b vaccine, conjugate unspecified formulation Jolene Rivera DO Work Phone: [employer] Work Phone: 2000 pneumococcal conjuga te vaccine, 7 valent Jolene Rivera DO Work Phone: [employer] Work Phone: 2000 poliovirus vaccine, unspecified formulation Jolene Rivera DO Work Phone: [employer] Work Phone: 2000 hepatitis B vaccine, pediatric or pediatric/adolescent dosage Jolene Rivera DO Work Phone: [employer] Work Phone: 2000 hepatitis B vaccine, pediatric or pediatric/adolescent dosage Jolene Rivera DO Work Phone: [employer] Work Phone: Payers Date Payer Category Payer Unknown [employer] [address] xxxxxxxxxxxx 2015-Present [phone] [address] [place] [address] xxxxxxxxxxxx [id number] 2000 Unknown [id number] 1971 Unknown [id number] 1959 Unknown [id number] Unknown Social History Date Type Detail Facility Start: 10-30-2018 End: 09-22-2021 Tobacco smoking status NHIS Never smoker [place], [place] Start: 10-30-2018 Alcohol intake No [place], [place] Start: 2000 Sex Assigned At Not on file [place] Start: 05-26-2019 End: 04-25-2022 Alcohol intake Current non-drinker of alcohol (finding) [place] Exposure to SARS-CoV -2 (event) Unable to assess [place] Start: 10-08-2019 End: 09-22-2021 Tobacco use and exposure [facility] [place] Start: 04-15-2022 End: 04-25-2022 Exposure to SARS-CoV-2 (event) Not sure [place] Start: 02-28-2021 End: 04-25-2022 Alcohol intake [facility] Phone: Start: 10-04-2020 History SDOH Financial 5 [facility] Phone: Start: 10-04-2020 History SDOH Food Worry 1 [facility] Phone: Exposure to SARS-CoV -2 (event) Yes [facility] Phone: Evaluation note 03-07-2023 Note Date & Type Note Facility 03-07-2023 Evaluation note Encounter Date Diagnosis Assessment Notes Feb, Contact with and (suspected) exposure to other viral communicable diseases (ICD-10 - Z20.828) Feb, Bilateral otitis media, unspecified otitis media type (ICD-10 - H66.93) Drink plenty fluids, get plenty of rest. Take the cefdinir as prescribed until gone. Take Tylenol or Motrin as needed for aches pains or fevers. Follow-up with your family physician if no improvement in 2 to 3 days Feb, Sore throat (ICD-10 - J02.9) [facility] Discharge instructions 02-28-2021 InstructionsAttachments Note Date & Type Note Facility 02-28-2021 Hospital Discharg e instructions MiguelJolene, DO - 02/28/2021 PLEASE RETURN TO THE EMERGENCY DEPARTMENT IMMEDIATELY if your symptoms worsen in anyway or in 8-12 hours if not improved for re-evaluation. You should immediately return to the ER for symptoms such as increasing pain, bloody stool, fever, a feeling of passing out, light headed, dizziness, chest pain, shortness of breath, persistent nausea and/or vomiting, numbness or weakness to the arms or legs, coolness or color change of the arms or legs. Take your medication as indicated and prescribed. If you are given an antibiotic then, make sure you get the prescription filled and take the antibiotics until finished. Please understand that at this time there is no evidence for a more serious underlying process, but that early in the process of an illness or injury, an emergency department workup can be falsely reassuring. You should contact your family doctor within the next 24 hours for a follow up appointment THANK YOU!!! From [facility] and [facility] On behalf of the Emergency Department staff at [facility], I would like to thank you for giving us the opportunity to address your health care needs and concerns. We hope that during your visit, our service was delivered in a professional and caring manner. Please keep [facility] in mind as we walk with you down the path to your own personal wellness. Please expect an automated text message or email from us so we can ask a few questions about your health and progress. Based on your answers, a clinician may call you back to offer help and instructions. Please understand that early in the process of an illness or injury, an emergency department workup can be falsely reassuring. If you notice any worsening, changing or persistent symptoms please call your family doctor or return to the ER immediately. Tell us how we did during your visit at [email or web address] and let us know about your experience The following attachments cannot be sent through Care Everywhere.Gastroenteritis (Barbadian)documented in this encounter [facility] Phone: Evaluation note Note Date & Type Note Facility Evaluation note Diagnosis Gastroenteritis- Primary Other and unspecified noninfectious gastroenteritis and colitis documented in this encounter [facility] Phone: Evaluation note Note Date & Type Note Facility Evaluation note Diagnosis Sprain of right wrist, initial encounter- Primary documented in this encounter [facility] Phone: History general Narrative - Reported Note Date & Type Note Facility History general Narrative - Reported Type Surgical History femur fracture [facility] Discharge instructions Attachments Note Date & Type Note Facility Hospital Discharge instructions The following attachments cannot be sent through Care Everywhere.RICE: General Info (Barbadian)Wrist Sprain (Barbadian)Hand Sprain (Barbadian)documented in this encounter [facility] Phone: Summary Purpose Family History No Family History Records FoundNo Family History Records Found Advance Directives Documents on File Type Date Recorded Patient Senior Project Manager Expl anation Advance Directives and Living Will Power of Hot Wire Glass Tube Cutter Documents on File Type Date Recorded Patient Senior Project Manager Expl anation ACP-Advance Directive ACP-Power of Hot Wire Glass Tube Cutter Discharge Instructions * Instructions* Abeba Maciel MD - 10/30/2018 Drink plenty fluids and get extra rest. May use ibuprofen. Welaka as needed. Return for worsening fever, pain, rash, mental status change, or if worse in any way. * Attachments The following attachments cannot be sent through Care Everywhere. * Viral Infections: Teen (Barbadian) documented in this encounter* Instructions* Linda Espinoza PA-C - 05/26/2019 Please read and follow all instructions. Take [id number] Tylenol as directed for pain. Apply ice to the right wrist and right hand for 20 to 30 minutes 3-4 times daily over the next 2 to3 days. Follow-up evaluation with primary care doctor in the next 5 to 7 days via telemedicine. Seek medical attention for worsening pain, numbness or coolness in the right upper extremity, or any other concerning symptomatology. * Attachments The following attachments cannot be sent through Care Everywhere. * Contusion: Hand (Barbadian) documented in this encounter* Instructions* Linda Espinoza PA-C - 10/08/2019 Please read and follow all instructions. Keep the laceration site clean, dry, and covered; you may shower as normal, but do not submerge your left foot in water until sutures are removed. Change the dressing over the laceration site at least once daily. Apply [id number] Neosporin, Polysporin, or triple antibiotic cream to the affected area twicedaily. Check the laceration site daily for surrounding redness or drainage. Suture removal with your primary care physician in 8-10 days. Seek medical attention for concerns for infection, fever above 101 F or any other concerning symptomatology. * Attachments The following attachments cannot be sent through Care Everywhere. * Lacerations: Stitches (Barbadian) documented in this encounter* Instructions* Abeba Maciel MD - 11/07/2019 May apply ice or heat. Tylenol or Motrin as directed. Continue antibiotics as directed. Return for worsening pain, fever, difficulty breathing, or if worse in any way. PLEASE RETURN TO THE EMERGENCY DEPARTMENT IMMEDIATELY if your symptoms worsen in anyway or in 8-12 hours if not improved for re-evaluation. You should immediately return to the ER for symptoms such as increasing pain, shortness of breath, fever, a feeling of passing out, light headed, dizziness, abdominal pain, numbness or weakness to the arms or legs, coolness or color change of the arms or legs. Take your medication as indicated and prescribed. If you are given an antibiotic then, make sure you get the prescription filled and take the antibiotics until finished. Please understand that at this time there is no evidence for a more serious underlying process, butthat early in the process of an illness or injury, an emergency department workup can be falsely reassuring. You should contact your family doctor within the next 24 hours for a follow up appointment THANK YOU!!! From [facility] and [facility] On behalf of the Emergency Department staff at [facility], I would like to thank you for giving us the opportunity to address your health care needs and concerns. We hope that during your visit, our service was delivered in a professional and caring manner. Please keep [facility] in mind as we walk with you down the path to your own personal wellness. Please expect an automated text message or email from us so we can ask a few questions about your health and progress. Based on your answers, a clinician may call you back to offer help and instructions. Please understand that early in the process of an illness or injury, an emergency department workupcan be falsely reassuring. If you notice any worsening, changing or persistent symptoms please callyour family doctor or return to the ER immediately. Tell us how we did during your visit at [email or web address] and let us know about your experience * Attachments The following attachments cannot be sent through Care Everywhere. * Strep Throat (Barbadian) * Chest Pain (Barbadian) documented in this encounter Assessments Diagnosis Viral syndrome- Primary Unspecified viral infection, in conditions classified elsewhere and of unspecified site Diagnosis Contusion of right wrist, initial encounter Diagnosis Foot laceration, left, initial encounter Diagnosis Chest pain, unspecified type Streptococcal sore throat Additional Source Comments (unrecognized sect ion and content) No Status Records FoundNo Status Records Found INFORMATION SOURCE (unrecogn ized section and content) DATE CREATED AUTHOR 02/22/2018 [facility] DATE CREATED AUTHOR AUTHOR'S ORGANIZ ATION 12/15/2022 [facility] Reason for Visit (unrecogniz ed section and content) HEADACHE, SORE THROAT, PLUGG ED EARS Reason Comments Headache started around 1000 Reason Comments Wrist Pain right Reason Comments Laceration left foot Reason Comments Chest Pain Shortness of Breath Headache Dx with strept yeste rday. Cefdiner and Motrin 800mg 2 hours ago. Reason Comments Emesis Reason Comments Wrist Injury Right wrist Wrist Pain Ordered Prescriptions (unrec ognized section and content) Prescription Sig Dispensed Refills Start Date End Da te ondansetron (ZOFRAN-ODT) 4 MG disintegrating tablet Take 1 tablet by mouth 3 times daily as needed for Nausea or Vomiting 21 tablet 0 02/28/2021 Scheduled Active and Recently Administ ered Medications (unrecognized section and content) Medication Order 02/26/2021 02/27/2021 02/28/2021 0.9 % sodium chloride bolus (COMPLETED) 80 mL (1.27 mL/kg), IntraVENous, at 160 mL/hr, Administer over 0.5 Hours, ONCE, On Wed02/28/21 at 1230, For 1 dose 1249 (New Bag - Prov ider: Reina Poignon)1300 (Stopped - Provider: Rosa Edwards, XAVIER) 0.9 % sodium chloride bolus (COMPLETED) 1,000 mL (15.9 mL/kg), IntraVENous, at 1,000 mL/hr, Administer over 1 Hours, ONCE, On Wed02/28/21 at 1215, For 1 dose 1222 (New Bag - Prov ider: Zandra Poe RN)1430 (Stopped - Provider: Rosa Edwards RN) ondansetron (ZOFRAN) injection 4 mg (COMPLETED) 4 mg, IntraVENous, ONCE, On Wed02/28/21 at 1215, For 1 dose 1223 (Given - Provid er: Zandra Poe RN) PRN Medication Order 02/26/2021 02/27/2021 02/28/2021 iopamidol (ISOVUE-370) 76 % injection 75 mL (COMPLETED) 75 mL, IntraVENous, IMG ONCE PRN, Other, Starting on Wed02/28/21 at 1218, For 1 dose 1249 (Given - Provid er: Bertram Poignon) sodium chloride flush 0.9 % injection 10 mL 10 mL, IntraVENous, PRN, Line Care, Starting on Wed02/28/21 at 1218 1250 (Given - Provid er: Bertram Poignon) Care Teams (unrecognized sec tion and content) Crotch Piece Baster Relationship Specialty Start Date End Date Rosangela Nunes BLUE SPLIT TRIMMER - [employer] VACU[employer] TESTER [address] [facility] [place] [address] PCP - General Nurse Practitioner 10/04/20 Crotch Piece Baster Relationship Specialty Start Date End Date Rosangela Nunes BLUE SPLIT TRIMMER - C[employer] VACUUM TESTER [address]ía [facility] [place] [place] [address] PCP - General Nurse Practitioner 10/04/20 FOR RECORDS PERTAINING TO PATIENTS WHO ARE OR HAVE BEEN ENROLLED IN A CHEMICAL DEPENDENCY/SUBSTANCEABUSE PROGRAM, SOME INFORMATION MAY BE OMITTED. This clinical summary was aggregated from multiple sources. Caution should be exercised in using it in the provision of clinical care. This summary normalizes information from multiple sources, and as a consequence, information in this document may materially change the coding, format and clinical context of patient data. In addition, data may be omitted in some cases. CLINICAL DECISIONS SHOULD BE BASED ON THE PRIMARY CLINICAL RECORDS. [facility] [employer] [facility]. provides no warranty or guarantee of the accuracy or completeness of information in this document.
--- NOTE | 2024-03-31 17:49 | ED_ITS ---
Documented by User: Kiana Staples 03/31/24 17:53 HPI HPI - General Adult General Chief complaint: Extremity Injury, Upper Stated complaint: upper extremity injury Time Seen by Provider: 03/31/24 16:54 Mode of arrival: walk-in History of Present Illness HPI narrative: 23-year-old male presents here with a chief complaint of an injury to the right little finger that occurred yesterday while at work. Patient states his hand got slammed with a broom at work. Subungual hematoma noted. Patient denies any other injuries. Injury did occur yesterday. He has been using ibuprofen at home. Related Data Previous Rx's ?Medication ?Instructions ?Recorded ibuprofen 800 mg tablet 800 mg PO Q8H PRN pain #30 tabs 03/31/24 Allergies Allergy/AdvReac Type Severity Reaction Status Date / Time Penicillins Allergy Severe Hives Verified 12/09/22 11:09 Opioid HPI Opioid Management Most Recent Opioid Data: No Data to Display Review of Systems ROS Narrative All Systems are negative except as noted/marked.All systems reviewed and otherwise negative PFSH PFSH Social History Smoking status: Light tobacco smoker Little interest or pleasure in doing things: not at all Feeling down, depressed, or hopeless: not at all Exam Narrative Exam Narrative: Nurses note and vital signs reviewed and patient is not hypoxic. General: The patient appears well and in no apparent distress. Patient is resting comfortably on cart. Skin: Warm, dry, no pallor noted. There is no rash noted. Head: Normocephalic, atraumatic Eye: Normal conjunctiva, no drainage, EOMI. PERRL Ears, Nose, Mouth, and Throat: oral mucosa is moist. Nares patent. Mouth without vesicles. Ear canals patent. Tm's without Erythema Musculoskeletal: Vanesa noted to the right little finger, full range of motion of the right hand, some tenderness with flexion extension of little finger. The patient has no evidence of calf tenderness, no pitting edema, symmetrical pulses noted bilaterally Neurological: A&O x4, normal speech Psychiatric: Cooperative Constitutional Vital Signs, click to edit/add: Last Vital Signs Temp 97.9 F 03/31/24 16:54 Pulse 74 03/31/24 16:54 Resp 18 03/31/24 16:54 BP 134/81 03/31/24 16:54 Pulse Ox 98 03/31/24 16:54 Course Vital Signs Vital signs: Vital Signs Temperature 97.9 F 03/31/24 16:54 Pulse Rate 74 03/31/24 16:54 Respiratory Rate 18 03/31/24 16:54 Blood Pressure 134/81 03/31/24 16:54 Pulse Oximetry 98 03/31/24 16:54 Temperature 97.9 F 03/31/24 16:54 Pulse Rate 74 03/31/24 16:54 Respiratory Rate 18 03/31/24 16:54 Blood Pressure 134/81 03/31/24 16:54 Pulse Oximetry 98 03/31/24 16:54 Medical Decision Making MDM Narrative Medical decision making narrative: 23-year-old male presents here with a chief complaint of an injury to the right little finger that occurred yesterday while at work. Patient states his hand got slammed with a broom at work. Subungual hematoma noted. Patient denies any other injuries. Injury did occur yesterday. He has been using ibuprofen at home. No acute fracture or deformity. Patient had subungual hematoma that was trephinated by myself. Moderate amount of blood was expressed from the little finger. Bacitracin and finger splint applied by nursing staff. Extremity neurovascular intact before and after finger splint. Patient will follow-up with occupational health. He was given a list of occupational medicine department to follow-up. I explained the importance of following up with the occupational medicine. He agrees with plan of care discharged home prescription of ibuprofen. Ice and elevation Differential Diagnosis Differential Diagnosis: finger fracrue, subungual hematoma, sprain Medical Records Medical records reviewed: Yes I reviewed the patient's medical records Imaging Data finger: Radiologist's impression: ITS Impressions Hand X-Ray 03/31/24 16:56 IMPRESSION: No acute process. Electronically authenticated by: COLE VAZQUEZ Date: 03/31/2024 18:44 Discharge Plan Discharge Chief Complaint: Extremity Injury, Upper Clinical Impression: Finger sprain, Subungual hematoma Patient Disposition: Home, Self-Care Time of Disposition Decision: 17:47 Condition: Good Prescriptions / Home Meds: New ibuprofen 800 mg tablet 800 mg PO Q8H PRN (Reason: pain) Qty: 30 0RF Print Language: Algerian Instructions: Subungual Hematoma (ED), Finger Sprain (ED) Additional Instructions: occupational health per employer discretion, information sheet provided in er Referrals: Physician,Non-Staff, [Primary Care Provider] - 1 week Discharge Date/Time: 03/31/24 18:03 Documented by User: Bonifacio Salgado MD 03/31/24 19:50 HPI HPI - General Adult General Chief complaint: Extremity Injury, Upper Stated complaint: upper extremity injury Time Seen by Provider: 03/31/24 16:54 Related Data Previous Rx's ?Medication ?Instructions ?Recorded ibuprofen 800 mg tablet 800 mg PO Q8H PRN pain #30 tabs 03/31/24 Allergies Allergy/AdvReac Type Severity Reaction Status Date / Time Penicillins Allergy Severe Hives Verified 12/09/22 11:09 Opioid HPI Opioid Management Most Recent Opioid Data: No Data to Display PFSH PFSH Social History Smoking status: Light tobacco smoker Little interest or pleasure in doing things: not at all Feeling down, depressed, or hopeless: not at all Exam Constitutional Vital Signs, click to edit/add: Last Vital Signs Temp 97.9 F 03/31/24 16:54 Pulse 74 03/31/24 16:54 Resp 18 03/31/24 16:54 BP 134/81 03/31/24 16:54 Pulse Ox 98 03/31/24 16:54 Course Vital Signs Vital signs: Vital Signs Temperature 97.9 F 03/31/24 16:54 Pulse Rate 74 03/31/24 16:54 Respiratory Rate 18 03/31/24 16:54 Blood Pressure 134/81 03/31/24 16:54 Pulse Oximetry 98 03/31/24 16:54 Temperature 97.9 F 03/31/24 16:54 Pulse Rate 74 03/31/24 16:54 Respiratory Rate 18 03/31/24 16:54 Blood Pressure 134/81 03/31/24 16:54 Pulse Oximetry 98 03/31/24 16:54 Medical Decision Making MDM Narrative Medical decision making narrative: 23-year-old male presents here with a chief complaint of an injury to the right little finger that occurred yesterday while at work. Patient states his hand got slammed with a broom at work. Subungual hematoma noted. Patient denies any other injuries. Injury did occur yesterday. He has been using ibuprofen at home. No acute fracture or deformity. Patient had subungual hematoma that was trephinated by myself. Moderate amount of blood was expressed from the little finger. Bacitracin and finger splint applied by nursing staff. Extremity neurovascular intact before and after finger splint. Patient will follow-up with occupational health. He was given a list of occupational medicine department to follow-up. I explained the importance of following up with the occupational medicine. He agrees with plan of care discharged home prescription of ibuprofen. Ice and elevation I, Dr Salgado, have reviewed the above progress note and course of action in the ER; agree with the above. I have gone over history and physical, and discussed disposition and treatment plan with the PA. Imaging Data finger: Radiologist's impression: ITS Impressions Hand X-Ray 03/31/24 16:56 IMPRESSION: No acute process. Electronically authenticated by: COLE VAZQUEZ Date: 03/31/2024 18:44 Discharge Plan Discharge Chief Complaint: Extremity Injury, Upper Clinical Impression: Finger sprain, Subungual hematoma Patient Disposition: Home, Self-Care Time of Disposition Decision: 17:47 Condition: Good Prescriptions / Home Meds: New ibuprofen 800 mg tablet 800 mg PO Q8H PRN (Reason: pain) Qty: 30 0RF Print Language: Algerian Instructions: Subungual Hematoma (ED), Finger Sprain (ED) Additional Instructions: occupational health per employer discretion, information sheet provided in er Referrals: Physician,Non-Staff, MD [Primary Care Provider] - 1 week Discharge Date/Time: 03/31/24 18:03
[2024-03-31] MEDS: BACITRACIN 0.9 GM PACKET 1 PACKET TOPICAL (18:00)
== END 2024-03-31 18:03 | disposition home or self-care (01) ==
PROVIDERS: Emergency Provider Emergency Medicine
DX: S60.151A Contusion of right little finger with damage to nail, initial encounter (principal); W22.8XXA Striking against or struck by other objects, initial encounter; S63.616A Unspecified sprain of right little finger, initial encounter
CPT/HCPCS: 11740; 73130; 99283